=== PATIENT | male | born 1945 | race Caucasian/White ===

== ENCOUNTER 2017-05-16 20:28 | Inpatient (IN) | payer MEDICARE, BC ==
[~2017-05-16] VITALS: Ht 175.3 cm; Wt 78.4 kg
[~2017-05-16 20:28] MED LIST: ALBU8I INH; ASPI81TA82 PO; HYDR-3533 PO; NEXI40CA PO; OMEG100010; PARO20; RAMI5CAP36 PO; ROSU40 PO
[2017-05-16 20:32] VITALS: BP 106/69; PULSE 75; RESP 22; TEMP 98.7; O2SAT 96
[2017-05-16 20:40] VITALS: O2SAT 97
[2017-05-16] MEDS ORDERED: SODIUM CHLOR 0.9% 1000 ML INJ 1,000 ML IV ONE (20:55)
--- NOTE | 2017-05-16 21:10 | PD ---
HPI Chief Complaint: Neuro Symptoms/ Deficits Time Seen by Provider: 20:55 Travel History International Travel<30 days: No Contact w/Intl Traveler<30days: No Traveled to known affect area: No History of Present Illness HPI The patient is a 72-year-old male that developed slurred speech yesterday and then a 1 away. Around 10:30 AM he developed slurred speech but did not go away. He has difficulty keeping his balance when he walks, he may fall to the right some but this has not been noticed by the family. He does not notice any focal neurologic change. A similar thing happened one year ago in [place] where he lives but this was attributed to low blood sugar. Shortly after the slurred speech began today, the gave him some sugar. His Accu-Chek is 100 here. He denies any headache or head trauma. PFSH Past Medical History Asthma: Yes High Cholesterol: Yes Diminished Hearing: No Renal Failure: Yes Social History Alcohol Use: Yes (OCCAS) Tobacco Use: No Substance Use: No Allergies-Medications (Allergen,Severity, Reaction): Coded Allergies: penicillin G (Unverified Allergy, Intermediate, RASH, 05/16/17) Reported Meds & Prescriptions Reported Meds & Active Scripts Active Lortab 5 mg/325 mg (Hydrocodone/Acetaminophen 5 mg/325 mg) 1 Tab 1 Tab PO Q6H PRN Reported Paxil 20 Mg Tab (Paroxetine Hcl) 20 Mg Tab 20 Mg .XX [place] 3 ([place]-3 Fatty Acids) 1,000 Mg Cap Ramipril 5 mg (Ramipril) 5 Mg Cap 1 Cap PO DAILY Nexium (Esomeprazole Magnesium) Esomeprazole Magnesium 40 mg Cap 40 Mg PO DAILY Aspir-81 (Aspirin) 81 Mg Tab 81 Mg PO DAILY Crestor (Rosuvastatin Calcium) 40 Mg Tab 40 Mg PO DAILY Ventolin Hfa (Albuterol Sulfate) 8 Gm Aero 1 Puff INH Q4H PRN * SHAKE WELL BEFORE USE * Review of Systems Except as stated in HPI: all other systems reviewed are Neg Physical Exam Narrative GENERAL: The patient is alert, oriented 3 in no apparent distress. He does have a very slight slurred speech. Respirations are 22 but the rest the vital signs are normal. SKIN: Focused skin assessment warm/dry. HEAD: Atraumatic. Normocephalic. EYES: Pupils equal and round. No scleral icterus. No injection or drainage. ENT: No nasal bleeding or discharge. Mucous membranes pink and moist. NECK: Trachea midline. No JVD. No neck vein distention is present. No carotid bruits are heard. CARDIOVASCULAR: Regular rate and rhythm. No murmur appreciated. RESPIRATORY: No accessory muscle use. Clear to auscultation. Breath sounds equal bilaterally. GASTROINTESTINAL: Abdomen soft, non-tender, nondistended. Hepatic and splenic margins not palpable. MUSCULOSKELETAL: No obvious deformities. No clubbing. No cyanosis. No edema. NEUROLOGICAL: Awake and alert. No obvious cranial nerve deficits. Motor grossly within normal limits. Slightly slurred speech. When the patient stands on one leg, he has more difficulty standing on the right leg. There is questionable right sided weakness. Hand typesetting machine tender are equal. PSYCHIATRIC: Appropriate mood and affect; insight and judgment normal. Data Data Last Documented VS Vital Signs Date Time Temp Pulse Resp B/P (MAP) Pulse Ox O2 Delivery O2 Flow Rate FiO2 05/16/17 22:55 97.8 66 16 100/57 (71) 96 Room Air Orders Orders Nursing Bedside Swallow Assess .ONCE (05/16/17 20:55) Activity Bed Rest (05/16/17 20:55) Prothrombin Time / Inr (Pt) (05/16/17 20:55) Act Partial Throm Time (Ptt) (05/16/17 20:55) Complete Blood Count With Diff (05/16/17 20:55) Creatine Kinase (Cpk) (05/16/17 20:55) Troponin I (05/16/17 20:55) Ua Includes Microscopic (05/16/17 20:55) Ct Brain W/O Iv Contrast(Rout) (05/16/17 ) Electrocardiogram (05/16/17 ) Sodium Chlor 0.9% 1000 Ml Inj (Ns 1000 M (05/16/17 20:55) Blood Glucose (05/16/17 20:55) Ecg Monitoring (05/16/17 20:55) Iv Access Insert/Monitor (05/16/17 20:55) Oximetry (05/16/17 20:55) Oxygen Administration (05/16/17 20:55) Resp Oxygen Gamal C Titrat 1-4 L (05/16/17 20:55) Admit To Inpatient (05/16/17 ) Code Status (05/16/17 23:03) Vital Signs (Adult) Q4H (05/16/17 23:03) Nih Stroke Scale - Nihss .On admission and discharge (05/16/17 23:03) Neuro Checks Q4H (05/16/17 23:03) Ot Request For Service (05/16/17 23:03) Consult Pt Eval & Treat (05/16/17 23:03) Speech Therapy Consult-Eval/Tx (05/16/17 23:03) Case Management Consult (05/16/17 ) Activity Bed Rest (05/16/17 23:03) Nursing Bedside Swallow Assess .ONCE (05/16/17 23:03) Scd Bilateral/Knee High ZONIA.QSHIFT (05/16/17 23:03) Diet Npo (05/17/17 Breakfast) Hemoglobin (Hgb) A1c (05/17/17 06:00) Lipid Profile (05/17/17 06:00) Mra Brain W/O Contrast (Cow) (05/16/17 ) Mri Brain W/O Contrast (05/16/17 ) Echo 2d Comp With Doppler (05/16/17 ) Resp Oxygen Gamal C Titrat 1-4 L (05/16/17 ) ^ Hold Medication (05/16/17 23:03) Consult Neurology (05/16/17 ) Sodium Chloride 0.9% Flush (Ns Flush) (05/17/17 09:00) Sodium Chloride 0.9% Flush (Ns Flush) (05/16/17 23:15) Sodium Chlor 0.9% 1000 Ml Inj (Ns 1000 M (05/16/17 23:03) Enalaprilat Inj (Vasotec Inj) (05/16/17 23:15) Aspirin Chew (Aspirin Chew) (05/17/17 09:00) Pravastatin (Pravachol) (05/17/17 21:00) Bedside Glucose ZONIA.CSUGAR (05/16/17 23:03) ^ Discontinue Insulin Orders (05/16/17 23:03) Insulin Aspart Supplemtl Scale (Novolog (05/17/17 08:00) Dextrose 50% In [place] (Vial) Inj (D50w (Vi (05/16/17 23:15) Glucagon Inj (Glucagon Inj) (05/16/17 23:15) Level Vial Inside Grinder / Telemetry ZONIA.Q8H (05/16/17 23:03) Consult Stroke Navigator (05/16/17 ) Scd Bilateral/Knee High ZONIA.BID (05/16/17 23:03) Abel Bilateral/Knee High ZONIA.QSHIFT (05/16/17 23:05) Inpatient Certification (05/16/17 ) Activity Oob With Assistance (05/16/17 23:03) Sodium Chloride 0.9% Flush (Ns Flush) (05/16/17 23:15) Sodium Chloride 0.9% Flush (Ns Flush) (05/17/17 09:00) Ondansetron Inj (Zofran Inj) (05/16/17 23:15) Comprehensive Metabolic Panel (05/17/17 06:00) Complete Blood Count With Diff (05/17/17 06:00) Acetaminophen (Tylenol) (05/16/17 23:15) Acetamin-Hydrocod 325-5 Mg ([place] 5-325 (05/16/17 23:15) Morphine Inj (Morphine Inj) (05/16/17 23:15) Docusate Sodium-Senna (Maggy-Colace) (05/17/17 09:00) Magnesium Hydroxide Liq (Milk Of Magnesi (05/16/17 23:15) Sennosides (Senokot) (05/16/17 23:15) Bisacodyl Supp (Dulcolax Supp) (05/16/17 23:15) Lactulose Liq (Lactulose Liq) (05/16/17 23:15) (Hub Use Only)Inp Phy Cons/Ref (05/16/17 ) Comprehensive Metabolic Panel (05/16/17 23:12) Labs Laboratory Tests Test 05/16/17 20:45 White Blood Count 6.1 TH/MM3 Red Blood Count 3.93 MIL/MM3 Hemoglobin 12.0 GM/DL Hematocrit 36.2 % Mean Corpuscular Volume 92.0 FL Mean Corpuscular Hemoglobin 30.4 PG Mean Corpuscular Hemoglobin Concent 33.1 % Red Cell Distribution Width 13.0 % Platelet Count 167 TH/MM3 Mean Platelet Volume 9.8 FL Neutrophils (%) (Auto) 51.1 % Lymphocytes (%) (Auto) 35.8 % Monocytes (%) (Auto) 8.6 % Eosinophils (%) (Auto) 2.8 % Basophils (%) (Auto) 1.7 % Neutrophils # (Auto) 3.1 TH/MM3 Lymphocytes # (Auto) 2.2 TH/MM3 Monocytes # (Auto) 0.5 TH/MM3 Eosinophils # (Auto) 0.2 TH/MM3 Basophils # (Auto) 0.1 TH/MM3 CBC Comment DIFF FINAL Differential Comment Prothrombin Time 11.4 SEC Prothromb Time International Ratio 1.1 RATIO Activated Partial Thromboplast Time 28.0 SEC Total Creatine Kinase 115 U/L Troponin I LESS THAN 0.02 NG/ML MDM Medical Decision Making Medical Screen Exam Complete: Yes Emergency Medical Condition: Yes Medical Record Reviewed: Yes Interpretation(s) The CT brain shows no acute findings. EKG shows sinus rhythm with a rate of [address] elevation or depression. The CBC shows a hemoglobin of 12.0 and hematocrit of 36.2 but is otherwise normal. The coagulation profile is normal. The cardiac enzymes are normal. Differential Diagnosis TIA, ischemic CVA, intracranial bleed, brain tumor-unlikely, hypo-/hyperglycemia , electrolyte disorder Narrative Course It is now 11:16 PM and the patient is starting to speak more clearly. He still has some minimal slurred speech. He will be admitted to Dr. Strong, I discussed the patient with her. Procedures EKG Prior to Arrival: No Physician Communication Physician Communication I discussed the patient with Dr. Strong. Diagnosis Primary Impression: Ischemic cerebrovascular accident (CVA) Admitting Information Admitting Physician Requests: Admit Kiko Mcnally MD May 16, 2017 21:10
[2017-05-16 21:11] LABS: AUTOMATED NEUTROPHIL # 3.1 TH/MM3 (1.8-7.7); BASOPHIL # 0.1 TH/MM3 (0-0.2); BASOPHIL % 1.7 % (0.0-2.0); EOSINOPHIL # 0.2 TH/MM3 (0-0.4); EOSINOPHIL % 2.8 % (0.0-4.0); HEMATOCRIT 36.2 % (39.0-51.0); LYMPH % 35.8 % (9.0-44.0); LYMPHOCYTE # 2.2 TH/MM3 (1.0-4.8); MEAN CORPUSCULAR HEMOGLOBIN 30.4 PG (27.0-34.0); MEAN CORPUSCULAR HGB CONC 33.1 % (32.0-36.0); MEAN PLATELET VOLUME 9.8 FL (7.0-11.0); MONO % 8.6 % (0.0-8.0); MONOCYTE # 0.5 TH/MM3 (0-0.9); NEUT % 51.1 % (16.0-70.0); PLATELET COUNT 167 TH/MM3 (150-450); RED BLOOD COUNT 3.93 MIL/MM3 (4.50-5.90); WHITE BLOOD COUNT 6.1 TH/MM3 (4.0-11.0)
[2017-05-16 21:26] LABS: INTERNATIONAL NORMALIZED RATIO 1.1 RATIO; PROTHROMBIN TIME - PATIENT 11.4 SEC (9.8-11.6)
[2017-05-16 21:30] VITALS: BP 112/62; PULSE 70; RESP 16; O2SAT 97
[2017-05-16 21:30] LABS: TROPONIN I LESS THAN 0.02 NG/ML (0.02-0.05)
--- NOTE | 2017-05-16 21:50 | RADRPT ---
EXAM DATE/TIME: 05/16/2017 21:30 [facility] COMPARISON: CT BRAIN W/O CONTRAST, August 28, 2014, 14:02. INDICATIONS : Unsteady gait and slurred speach today RADIATION DOSE: 60.10 CTDIvol (mGy) MEDICAL HISTORY : Renal failure, chronic. SURGICAL HISTORY : None. ENCOUNTER: Initial ACUITY: 1 day PAIN SCALE: 0/10 LOCATION: cranial TECHNIQUE: Multiple contiguous axial images were obtained of the head. Using automated exposure control and adj ustment of the mA and/or kV according to patient size, radiation dose was kept as low as reasonably a chievable to obtain optimal diagnostic quality images. DICOM format image data is available electro nically for review and comparison. FINDINGS: CEREBRUM: The ventricles are normal for age. No evidence of midline shift, mass lesion, hemorrhage or acute in farction. No extra-axial fluid collections are seen. POSTERIOR FOSSA: The cerebellum and brainstem are intact. The 4th ventricle is midline. The cerebellopontine angle i s unremarkable. EXTRACRANIAL: The visualized portion of the orbits is intact. SKULL: The calvaria is intact. No evidence of skull fracture. CONCLUSION: No acute intracranial findings. Nain Reynolds MD on May 16, 2017 at 21:47 Board Certified Radiologist. This report was verified electronically.
[2017-05-16 22:55] VITALS: BP 100/57; PULSE 66; RESP 16; TEMP 97.8; O2SAT 96
[2017-05-16] MEDS ORDERED: MORPHINE SULFATE 2 MG/ML INJ IV PUSH PRN (23:15)
[2017-05-16] MEDS ORDERED: DEXTROSE 50% IN WATER 50 ML VIAL(D50) IV PUSH PRN (23:15)
[2017-05-16] MEDS ORDERED: ENALAPRILAT 1.25 MG/ML VIAL IV PUSH PRN (23:15)
[2017-05-16] MEDS ORDERED: SODIUM CHLORIDE 0.9% FLUSH 10 ML FLUSH IV FLUSH PRN ×2 (23:15)
[2017-05-16] MEDS ORDERED: LACTULOSE SYRUP 20 GM/30 ML CUP PO PRN (23:15)
[2017-05-16] MEDS ORDERED: BISACODYL 10 MG SUPP RECTAL PRN (23:15)
[2017-05-16] MEDS ORDERED: GLUCAGON 1 MG/ML VIAL OTHER PRN (23:15)
[2017-05-16] MEDS ORDERED: ONDANSETRON HCL 4 MG/2 ML VIAL IVP PRN (23:15)
[2017-05-16] MEDS ORDERED: MAGNESIUM HYDROXIDE SUSP 30 ML CUP PO PRN (23:15)
[2017-05-16] MEDS ORDERED: SENNOSIDES 8.6 MG TAB PO PRN (23:15)
[2017-05-16] MEDS ORDERED: ACETAMINOPHEN/HYDROcodone 325 MG/5 MG TAB PO PRN (23:15)
[2017-05-16 23:18] LABS: CHLORIDE 108 MEQ/L (98-107); SODIUM (NA) 141 MEQ/L (136-145)
[2017-05-16 23:25] LABS: ALBUMIN 3.8 GM/DL (3.4-5.0); BICARBONATE 24.4 MEQ/L (21.0-32.0); BLOOD UREA NITROGEN 15 MG/DL (7-18); CALCIUM 8.3 MG/DL (8.5-10.1); GLUCOSE,RANDOM 94 MG/DL (74-106)
[2017-05-16] MEDS: SODIUM CHLOR 0.9% 1000 ML INJ 1,000 ML IV SCH (23:26)
[2017-05-16 23:28] LABS: ALT (GPT) 38 U/L (12-78); AST (GOT) 44 U/L (15-37); GLOMERULAR FILTRATION RATE 59 ML/MIN (>89)
[2017-05-16 23:30] LABS: TOTAL BILIRUBIN ADULT 0.5 MG/DL (0.2-1.0); TOTAL PROTEIN 7.1 GM/DL (6.4-8.2)
[2017-05-16 23:31] LABS: ALKALINE PHOSPHATASE 77 U/L (45-117)
[2017-05-16 23:57] VITALS: BP 108/57; PULSE 68; RESP 16; O2SAT 98
[2017-05-17] VITALS (8 sets, daily range): BP systolic 126–168; BP diastolic 77–105; PULSE 64–88; RESP 16–20; TEMP 93.1–98.3; O2SAT 95–98
[2017-05-17] MEDS: INSULIN ASPART SUPPLEMENTAL SCALE SQ SCH ×4 (08:00→20:16)
[2017-05-17] MEDS: SODIUM CHLORIDE 0.9% FLUSH 10 ML FLUSH IV FLUSH SCH ×2 (09:00→20:17)
[2017-05-17] MEDS ORDERED: ASPIRIN 81 MG CHEW TAB PO SCH (09:00)
[2017-05-17] MEDS ORDERED: SODIUM CHLORIDE 0.9% FLUSH 10 ML FLUSH IV FLUSH SCH (09:00)
[2017-05-17 09:07] LABS: AUTOMATED NEUTROPHIL # 3.2 TH/MM3 (1.8-7.7); BASOPHIL % 0.3 % (0.0-2.0); EOSINOPHIL # 0.1 TH/MM3 (0-0.4); EOSINOPHIL % 2.2 % (0.0-4.0); HEMATOCRIT 33.1 % (39.0-51.0); HEMOGLOBIN 10.9 GM/DL (13.0-17.0); LYMPH % 25.7 % (9.0-44.0); LYMPHOCYTE # 1.2 TH/MM3 (1.0-4.8); MEAN CELL VOLUME 93.3 FL (80.0-100.0); MEAN CORPUSCULAR HEMOGLOBIN 30.7 PG (27.0-34.0); MEAN PLATELET VOLUME 8.6 FL (7.0-11.0); MONO % 7.1 % (0.0-8.0); MONOCYTE # 0.3 TH/MM3 (0-0.9); NEUT % 64.7 % (16.0-70.0); PLATELET COUNT 129 TH/MM3 (150-450); RED BLOOD COUNT 3.55 MIL/MM3 (4.50-5.90); RED CELL DISTRIBUTION WIDTH 13.2 % (11.6-17.2); WHITE BLOOD COUNT 4.8 TH/MM3 (4.0-11.0)
--- NOTE | 2017-05-17 09:44 | HHI.HP ---
[facility] Service [place] [facility] Primary Care Physician Non-Staff Admission Diagnosis Ischemic CVA Diagnoses: (1) TIA (transient ischemic attack) Chief Complaint: Slurred speech and balance difficulty Travel History International Travel<30 Days: No Contact w/Intl Traveler <30 Da: No Traveled to Known Affected Are: No History of Present Illness This is a 72-year-old male patient with a known medical history of hypertension , asthma, hyperlipidemia and kidney disease who presented to ED with complaints of slurred speech and balance difficulty. Patient states he was working outside all morning on the house, painting and doing yard work when he came inside around 11 AM and his reported increasing slurring of speech, confusion and repeating of his words. She also states that he continued to lose his balance, but never fell. He denies any loss of consciousness. is at bedside and states that this is happening to him on the past roughly one year ago up in [place] which was attributed to hypoglycemia at this time. She may be thought that the symptoms were related to keep him a diabetic sugar pill. Toes did not improve and therefore she brought him into the ER. Upon admission his blood sugar was 100. Symptoms have improved, patient is alert and awake and oriented. He does admit to chronic restless leg syndrome and fidgeting of hands. Patient has seen his PCP and was placed on Ropinirole. He has not been diagnosed with Parkinson's disease but states that he was told that this may be early signs of the disease. Denies any recent illness including fever, chills, cough, shortness of breath, abdominal pain, nausea, vomiting, diarrhea or dysuria. It should be noted that patient fell off his roof roughly 3 years ago and since then has having complaints of intermittent migraines and restlessness in his upper and lower extremities. Review of Systems Constitutional: DENIES: Fever, Chills Eyes: DENIES: Blurred vision, Diplopia Respiratory: DENIES: Cough, Sputum production, Shortness of breath Cardiovascular: DENIES: Chest pain, Syncope Gastrointestinal: DENIES: Abdominal pain, Bloody stools, Constipation, Diarrhea , Nausea, Vomiting Neurologic: COMPLAINS OF: Speech Problems, Tremor, Poor Balance Psychiatric: COMPLAINS OF: Confusion Except as stated in HPI: all other systems reviewed are Neg Past Family Social History Past Medical History Migraine headaches Asthma Hyperlipidemia Hypertension Renal failure Past Surgical History Denies any surgical history. Reported Medications Active Lortab 5 mg/325 mg (Hydrocodone/Acetaminophen 5 mg/325 mg) 1 Tab 1 Tab PO Q6H PRN Reported Paxil 20 Mg Tab (Paroxetine Hcl) 20 Mg Tab 20 Mg .XX [place] 3 ([place]-3 Fatty Acids) 1,000 Mg Cap Ramipril 5 mg (Ramipril) 5 Mg Cap 1 Cap PO DAILY Nexium (Esomeprazole Magnesium) Esomeprazole Magnesium 40 mg Cap 40 Mg PO DAILY Aspir-81 (Aspirin) 81 Mg Tab 81 Mg PO DAILY Crestor (Rosuvastatin Calcium) 40 Mg Tab 40 Mg PO DAILY Ventolin Hfa (Albuterol Sulfate) 8 Gm Aero 1 Puff INH Q4H PRN * SHAKE WELL BEFORE USE * Allergies: Coded Allergies: penicillin G (Unverified Allergy, Intermediate, RASH, 05/16/17) Active Ordered Medications Current Medications Medications (Trade) Dose Ordered Sig/Caprice Route Start Time Stop Time Status Last Admin Sodium Chloride 1,000 ml @ 70 mls/hr [id number] IV 05/16/17 23:03 05/16/17 23:26 (Vasotec Inj) 1.25 mg Q4H PRN IV PUSH 05/16/17 23:15 (Aspirin Chew) 81 mg DAILY PO 05/17/17 09:00 05/17/17 09:55 (Pravachol) 40 mg HS PO 05/17/17 21:00 (NovoLOG SUPPLEMENTAL SCALE) 1 ACHS SQ 05/17/17 08:00 (D50w (Vial) Inj) 50 ml UNSCH PRN IV PUSH 05/16/17 23:15 (Glucagon Inj) 1 mg UNSCH PRN OTHER 05/16/17 23:15 (NS Flush) 2 ml UNSCH PRN IV FLUSH 05/16/17 23:15 (NS Flush) 2 ml BID IV FLUSH 05/17/17 09:00 (Zofran Inj) 4 mg Q6H PRN IVP 05/16/17 23:15 (Tylenol) 650 mg Q6H PRN PO 05/16/17 23:15 ([place] 5-325 Mg) 1 tab Q4H PRN PO 05/16/17 23:15 (Morphine Inj) 2 mg Q3H PRN IV PUSH 05/16/17 23:15 (Maggy-Colace) 1 tab BID PO 05/17/17 09:00 05/17/17 09:55 (Milk Of Magnesia Liq) 30 ml Q12H PRN PO 05/16/17 23:15 (Senokot) 17.2 mg Q12H PRN PO 05/16/17 23:15 (Dulcolax Supp) 10 mg DAILY PRN RECTAL 05/16/17 23:15 (Lactulose Liq) 30 ml DAILY PRN PO 05/16/17 23:15 Family History Family medical history significant for diabetes. Social History Denies any tobacco use. Denies any alcohol. Denies any illicit drug use. Physical Exam Vital Signs Vital Signs Date Time Temp Pulse Resp B/P (MAP) Pulse Ox O2 Delivery O2 Flow Rate FiO2 05/17/17 08:00 98.1 88 20 168/93 (118) 98 05/17/17 06:34 93.1 64 16 126/77 (93) 97 05/17/17 01:30 67 05/17/17 01:24 98 21 05/17/17 00:58 05/16/17 23:57 68 16 108/57 (74) 98 Room Air 05/16/17 22:55 97.8 66 16 100/57 (71) 96 Room Air 05/16/17 21:30 70 16 112/62 (79) 97 Room Air 05/16/17 20:40 97 Room Air 05/16/17 20:40 97 Room Air 05/16/17 20:32 98.7 75 22 106/69 (81) 96 Physical Exam GENERAL: This is a well-nourished, well-developed patient, in no apparent distress. SKIN: No rashes, ecchymoses or lesions. Cool and dry. HEAD: Atraumatic. Normocephalic. No temporal or scalp tenderness. EYES: Pupils equal round and reactive. Extraocular motions intact. No scleral icterus. No injection or drainage. ENT: Nose without bleeding, purulent drainage or septal hematoma. Throat without erythema, tonsillar hypertrophy or exudate. Uvula midline. Airway patent. NECK: Trachea midline. No JVD or lymphadenopathy. Supple, nontender, no meningeal signs. CARDIOVASCULAR: Regular rate and rhythm without murmurs, gallops, or rubs. RESPIRATORY: Clear to auscultation. Breath sounds equal bilaterally. No wheezes , rales, or rhonchi. GASTROINTESTINAL: Abdomen soft, non-tender, nondistended. No hepato-splenomegaly , or palpable masses. No guarding. MUSCULOSKELETAL: Extremities without clubbing, cyanosis, or edema. No joint tenderness, effusion, or edema noted. No calf tenderness. Negative Homans sign bilaterally. NEUROLOGICAL: Awake and alert. Cranial nerves II through XII intact. Motor and sensory grossly within normal limits. Five out of 5 muscle strength in all muscle groups. Normal speech. Laboratory Laboratory Tests Test 05/16/17 20:45 05/17/17 08:40 White Blood Count 6.1 4.8 Red Blood Count 3.93 3.55 Hemoglobin 12.0 10.9 Hematocrit 36.2 33.1 Mean Corpuscular Volume 92.0 93.3 Mean Corpuscular Hemoglobin 30.4 30.7 Mean Corpuscular Hemoglobin Concent 33.1 33.0 Red Cell Distribution Width 13.0 13.2 Platelet Count 167 129 Mean Platelet Volume 9.8 8.6 Neutrophils (%) (Auto) 51.1 64.7 Lymphocytes (%) (Auto) 35.8 25.7 Monocytes (%) (Auto) 8.6 7.1 Eosinophils (%) (Auto) 2.8 2.2 Basophils (%) (Auto) 1.7 0.3 Neutrophils # (Auto) 3.1 3.2 Lymphocytes # (Auto) 2.2 1.2 Monocytes # (Auto) 0.5 0.3 Eosinophils # (Auto) 0.2 0.1 Basophils # (Auto) 0.1 0.0 CBC Comment DIFF FINAL DIFF FINAL Differential Comment Prothrombin Time 11.4 Prothromb Time International Ratio 1.1 Activated Partial Thromboplast Time 28.0 Blood Urea Nitrogen 15 Creatinine 1.20 Random Glucose 94 Total Protein 7.1 Albumin 3.8 Calcium Level 8.3 Alkaline Phosphatase 77 Aspartate Amino Transf (AST/SGOT) 44 Alanine Aminotransferase (ALT/SGPT) 38 Total Bilirubin 0.5 Sodium Level 141 Potassium Level 4.3 Chloride Level 108 Carbon Dioxide Level 24.4 Anion Gap 9 Estimat Glomerular Filtration Rate 59 Total Creatine Kinase 115 Troponin I LESS THAN 0.02 Result Diagram: 05/17/17 0840 05/16/17 2045 Imaging Last Impressions Head CT 05/16/17 0000 Signed Impressions: Service Date/Time: Tuesday, May 16, 2017 21:30 - CONCLUSION: No acute intracranial findings. Nain Reynolds MD Septic Shock Reassessment Septic shock perfusion: reassessment completed Caprini VTE Risk Assessment Caprini VTE Risk Assessment: Mod/High Risk (score >= 2) Caprini Risk Assessment Model Point Value = 1 Point Value = 2 Point Value = 3 Point Value = 5 Age 41-60 Minor surgery BMI > 25 kg/m2 Swollen legs Varicose veins or History of unexplained or recurrent spontaneous Oral contraceptives or hormone replacement Sepsis (< 1 month) Serious lung disease, including pneumonia (< 1 month) Abnormal pulmonary function Acute myocardial infarction Congestive heart failure (< 1 month) History of inflammatory bowel disease Medical patient at bed rest Age 61-74 Arthroscopic surgery Major open surgery (> 45 min) Laparoscopic surgery (> 45 min) Malignancy Confined to bed (> 72 hours) Immobilizing plaster cast Central venous access Age >= 75 History of VTE Family history of VTE Factor V Leiden Prothrombin [id number] Lupus anticoagulant Anticardiolipin antibodies Elevated serum homocysteine Heparin-induced thrombocytopenia Other congenital or acquired thrombophilia Stroke (< 1 month) Elective arthroplasty Hip, pelvis, or leg fracture Acute spinal cord injury (< 1 month) Prophylaxis Regimen Total Risk Factor Score Risk Level Prophylaxis Regimen 0-1 Low Early ambulation 2 Moderate Order ONE of the following: *Sequential Compression Device (SCD) *Heparin 5000 units SQ BID 3-4 Higher Order ONE of the following medications: *Heparin 5000 units SQ TID *Enoxaparin/Lovenox 40 mg SQ daily (WT < 150 kg, CrCl > 30 mL/min) *Enoxaparin/Lovenox 30 mg SQ daily (WT < 150 kg, CrCl > 10-29 mL/min) *Enoxaparin/Lovenox 30 mg SQ BID (WT < 150 kg, CrCl > 30 mL/min) AND/OR *Sequential Compression Device (SCD) 5 or more Highest Order ONE of the following medications: *Heparin 5000 units SQ TID (Preferred with Epidurals) *Enoxaparin/Lovenox 40 mg SQ daily (WT < 150 kg, CrCl > 30 mL/min) *Enoxaparin/Lovenox 30 mg SQ daily (WT < 150 kg, CrCl > 10-29 mL/min) *Enoxaparin/Lovenox 30 mg SQ BID (WT < 150 kg, CrCl > 30 mL/min) AND *Sequential Compression Device (SCD) Assessment and Plan Problem List: (1) TIA (transient ischemic attack) ICD Code: G45.9 - Transient cerebral ischemic attack, unspecified Plan: Presence of slurred speech and balance difficulties. Rule out CVA vs Parkinson' s Disease vs hypoglycemia. CT head reviewed showing no acute intracranial findings. MRI/MRA of the brain ordered and pending. Follow. Speech is much improved. Patient is alert and oriented. CBC and BMP reviewed, essentially unremarkable. Some anemia noted. Will trend CBC. Lipid panel ordered and pending. Will check hemoglobin A1c. Follow. Continued home statin. Placed on daily aspirin. Consult placed to neurology, appreciate further input and recommendations. Supplemental O2 as needed. Echocardiogram ordered, pending. Follow. Continue cardiac telemetry, monitor for any arrhythmias. PT and OT ordered for evaluation treatment, appreciate recommendations. Patient passed bedside swallow eval. Allow PO intake. Monitor for any dysphagia. Ensure hydration, continue IV fluid. Accu-Cheks before meals and at bedtime, sliding scale as needed, return if any hypoglycemia. Hemoglobin A1c pending. (2) Hypertension ICD Code: I10 - Essential (primary) hypertension Plan: Mildly elevated BP. Continue home medications. Monitor BP trends. DVT prophylaxis: SCDs. Physician Certification 2 Midnight Certification Type: Admission for Inpatient Services Order for Inpatient Services The services are ordered in accordance with Medicare regulations or non- Medicare payer requirements, as applicable. In the case of services not specified as inpatient-only, they are appropriately provided as inpatient services in accordance with the 2-midnight benchmark. Estimated LOS (days): 2 2 days is the estimated time the patient will need to remain in the hospital, assuming treatment plan goals are met and no additional complications. Post-Hospital Plan: Home Karely Perdomo May 17, 2017 09:44
[2017-05-17] MEDS: DOCUSATE SODIUM 50 MG/SENNA 8.6 MG TAB PO SCH ×2 (09:55→20:17)
[2017-05-17 10:03] LABS: ALBUMIN 3.4 GM/DL (3.4-5.0); BICARBONATE 27.4 MEQ/L (21.0-32.0); BLOOD UREA NITROGEN 17 MG/DL (7-18); CHLORIDE 107 MEQ/L (98-107); GLUCOSE,RANDOM 84 MG/DL (74-106); SODIUM (NA) 141 MEQ/L (136-145)
[2017-05-17 10:06] LABS: ALT (GPT) 34 U/L (12-78); GLOMERULAR FILTRATION RATE 66 ML/MIN (>89)
[2017-05-17 10:08] LABS: AST (GOT) 35 U/L (15-37); TOTAL BILIRUBIN ADULT 0.6 MG/DL (0.2-1.0); TOTAL PROTEIN 6.4 GM/DL (6.4-8.2)
[2017-05-17 10:09] LABS: ALKALINE PHOSPHATASE 71 U/L (45-117)
[2017-05-17] MEDS: SODIUM CHLOR 0.9% 1000 ML INJ 1,000 ML IV SCH (12:08)
[2017-05-17] MEDS: ACETAMINOPHEN 325 MG TAB PO PRN ×2 (12:40→20:19)
[2017-05-17 13:18] LABS: CHOLESTEROL 142 MG/DL (120-200); TRIGLYCERIDES 382 MG/DL (42-150)
[2017-05-17 13:20] LABS: CHOLESTEROL/ HDL RATIO 3.27 RATIO; HDL CHOLESTEROL 43.3 MG/DL (40.0-60.0); LDL CHOLESTEROL 22 MG/DL (0-99)
--- NOTE | 2017-05-17 15:46 | RADRPT ---
EXAM DATE/TIME: 05/17/2017 15:13 [facility] COMPARISON: CT BRAIN W/O CONTRAST, May 16, 2017, 21:30. INDICATIONS : Cephalgia. Slurred speech. MEDICAL HISTORY : Hypercholesterolemia. Diabetes mellitus type 2. Hypertension. Renal failure. SURGICAL HISTORY : None. ENCOUNTER: Subsequent ACUITY: 2 day PAIN SCORE: 3/10 LOCATION: cranial TECHNIQUE: Multiplanar, multisequence MRI of the brain was performed without contrast. FINDINGS: CEREBRUM: The ventricles are normal for age. No evidence of midline shift, mass lesion, hemorrhage or acute in farction. No extraaxial fluid collections are seen. The pituitary gland and suprasellar cistern are normal in configuration. WHITE MATTER: On the flair weighted images there is mild increased signal in the periventricular white matter. Ther e are several tiny scattered punctate areas of decreased signal noted in the white matter characteris tic of chronic small vessel ischemic change. POSTERIOR FOSSA: The cerebellum and brainstem are intact. The 4th ventricle is midline. The cerebellopontine angle is unremarkable. The cerebellar tonsils are normal in position. DIFFUSION IMAGING: No focal areas of restricted diffusion are seen. No evidence of acute infarction. EXTRACRANIAL: The visualized portions of the orbits and paranasal sinuses are unremarkable. CONCLUSION: 1. No acute hemorrhage, mass or infarction. 2. Mild atrophy and chronic small vessel ischemic change. Mathew Ngo MD on May 17, 2017 at 15:42 Board Certified Radiologist. This report was verified electronically.
--- NOTE | 2017-05-17 15:56 | RADRPT ---
EXAM DATE/TIME: 05/17/2017 15:13 [facility] COMPARISON: No previous studies available for comparison. INDICATIONS : Cephalgia. Slurred speech. MEDICAL HISTORY : Hypercholesterolemia. Diabetes mellitus type 2. Hypertension. Renal failure. SURGICAL HISTORY : None. ENCOUNTER: Initial ACUITY: 2 day PAIN SCORE: 3/10 LOCATION: cranial Please note a normal MRA of the brain does not entirely exclude the possibility of a small aneurysm, nor the possibility of distal intracranial vessel disease. TECHNIQUE: 3D time of flight MRA was performed. Source images, multiplanar STS MIP, and 3D volume MIP reconstru ctions were reviewed. FINDINGS: There is excellent visualization of the major intracranial arteries out to the second-order branch ve ssels. There is no evidence for aneurysm, vessel truncation or stenosis, and no evidence for vascula r malformation. CONCLUSION: Unremarkable exam. Mathew Ngo MD on May 17, 2017 at 15:52 Board Certified Radiologist. This report was verified electronically.
[2017-05-17] MEDS ORDERED: LOSA50TA PO (16:01)
[2017-05-17] MEDS ORDERED: ROPI0.5T PO (16:03)
--- NOTE | 2017-05-17 16:08 | ECHRPT ---
Indication: CVA/TIA CONCLUSIONS Normal left ventricular size. Mild concentric left ventricular hypertrophy. The left ventricular systolic function is normal with an estimated ejection fraction in the range of 55-60%. The left atrial size is mildly dilated. The interatrial septum not well visualized. Moderate aortic dilatation at the level of the sinuses of Valsalva. [id number] mitral valve regurgitation. Aortic valve sclerosis is present. Mild aortic valve regurgitation. There is mild tricuspid valve regurgitation. The estimated pulmonary arterial pressure is 32.7 mmHg. Trivial pulmonary valve regurgitation. BP: 133 / 88 HR: 75 Rhythm: Sinus MEASUREMENTS (Male / Female) Normal Values Technical Quality:Fair 2D ECHO LV Diastolic Diameter PLAX 3.5 cm 4.2 - 5.9 / 3.9 - 5.3 cm LV Systolic Diameter PLAX 2.6 cm IVS Diastolic Thickness 1.3 cm 0.6 - 1.0 / 0.6 - 0.9 cm LVPW Diastolic Thickness 1.3 cm 0.6 - 1.0 / 0.6 - 0.9 cm LV Relative Wall Thickness 0.8 RV Internal Dim ED PLAX 2.6 cm LVOT Diameter 2.6 cm Aortic Root Diameter 4.3 cm LA Systolic Diameter LX 3.4 cm 3.0 - 4.0 / 2.7 - 3.8 cm M-MODE AV Cusp Separation MM 2.3 cm DOPPLER AV Peak Velocity 143.0 cm/s AV Peak Gradient 8.2 mmHg AV Mean Gradient 5.0 mmHg AV Velocity Time Integral 29.3 cm LVOT Peak Velocity 80.5 cm/s LVOT Peak Gradient 2.6 mmHg LVOT Velocity Time Integral 17.8 cm AV Area Cont Eq vti 3.2 cm AV Area Cont Eq pk 3.0 cm Mitral E Point Velocity 60.7 cm/s Mitral A Point Velocity 91.3 cm/s Mitral E to A Ratio 0.7 LV E' Lateral Velocity 11.6 cm/s Mitral E to LV E' Lateral Ratio 5.2 LV E' Septal Velocity 7.1 cm/s Mitral E to LV E' Septal Ratio 8.5 TR Peak Velocity 238.0 cm/s TR Peak Gradient 22.7 mmHg Right Atrial Pressure 10.0 mmHg Pulmonary Artery Systolic Pressu 32.7 mmHg Right Ventricular Systolic Press 32.7 mmHg PV Peak Velocity 60.2 cm/s PV Peak Gradient 1.4 mmHg FINDINGS LEFT VENTRICLE Normal left ventricular size. Mild concentric left ventricular hypertrophy. The left ventricular systolic function is normal with an estimated ejection fraction in the range of 55-60%. RIGHT VENTRICLE Normal right ventricular size and systolic function. LEFT ATRIUM The left atrial size is mildly dilated. RIGHT ATRIUM The right atrial size is normal. ATRIAL SEPTUM The interatrial septum not well visualized. AORTA Moderate aortic dilatation at the level of the sinuses of Valsalva. MITRAL VALVE [id number] mitral valve regurgitation. AORTIC VALVE Aortic valve sclerosis is present. Mild aortic valve regurgitation. TRICUSPID VALVE There is mild tricuspid valve regurgitation. The estimated pulmonary arterial pressure is 32.7 mmHg. PULMONARY VALVE Trivial pulmonary valve regurgitation. VESSELS The inferior vena cava is normal in size. PERICARDIUM No pericardial effusion. Amilcar Paul MD (Electronically Signed) Final Date:17 May 2017 16:07
[2017-05-17] MEDS ORDERED: ASPI1TAB57 PO (16:35)
[2017-05-17] MEDS ORDERED: NEXI40CA PO (16:36)
[2017-05-17] MEDS ORDERED: PARO20TA2 PO (16:38)
[2017-05-17] MEDS ORDERED: HYDR-3516 (16:38)
[2017-05-17] MEDS ORDERED: ROSU1TAB10 PO (16:39)
--- NOTE | 2017-05-17 16:49 | EKG ---
Date Performed: 05/16/2017 Time Performed: 20:59:54 PTAGE: 72 years EKG: Sinus rhythm BASELINE ARTIFACT POSSIBLE LEFT ATRIAL ENLARGEMENT NONSPECIFIC T-WAVE ABNORMALITY ABNORMAL ECG NO PREVIOUS TRACING DOCTOR: Amilcar Paul Interpretating Date/Time 05/17/2017 16:48:17
[2017-05-17] MEDS ORDERED: NON-FORMULARY DRUG (Rosuvastatin 40 MG) PO SCH (17:00)
[2017-05-17] MEDS: LOSARTAN 50 MG TAB PO SCH (17:33)
[2017-05-17] MEDS ORDERED: PRAVASTATIN SOD 40 MG TAB PO SCH (21:00)
[2017-05-18] VITALS: BP 169/89; PULSE 67; RESP 20; TEMP 96.4; O2SAT 95
[2017-05-18] MEDS: SODIUM CHLOR 0.9% 1000 ML INJ 1,000 ML IV SCH (05:00)
[2017-05-18 05:02] VITALS: BP 145/75; PULSE 61; RESP 16; TEMP 97; O2SAT 96
[2017-05-18 07:48] LABS: BILIRUBIN, URINE NEG (NEG); BLOOD, URINE NEG (NEG); GLUCOSE,URINE NEG (NEG); KETONE, URINE NEG (NEG); NITRITE,URINE NEG (NEG); PH, URINE 5.5 (5.0-8.5); URINE LEUKOCYTE ESTERASE NEG (NEG)
[2017-05-18 08:00] VITALS: BP 163/99; PULSE 70; RESP 18; TEMP 97.1; O2SAT 98
[2017-05-18] MEDS: INSULIN ASPART SUPPLEMENTAL SCALE SQ SCH (08:00)
[2017-05-18 08:01] LABS: URINE COLOR YELLOW (YELLW/STRAW)
[2017-05-18 08:02] LABS: RBC, URINE 0-3 /hpf (0-3)
--- NOTE | 2017-05-18 08:27 | MB ---
cc: UDAY REMY MD DATE OF CONSULTATION: 05/17/2017 REASON FOR CONSULTATION: "CVA." HISTORY OF PRESENT ILLNESS: Mr. Velez is a 72-year-old male with past medical history of hypertension, asthma, hyperlipidemia, kidney disease presented to the [facility] emergency room with complaints of slurred speech and balance difficulty. The patient is accompanied by his who was at the bedside. He states he was working outside all morning on the house. His noted that he had increasing slurred speech, confusion and repeating his words. He also stated that he continued to lose his balance but never fell. Denies loss of consciousness, headache, double vision, weakness of extremities or convulsion. He had a similar episode that was attributed to hypoglycemia when he was in [place]. The patient and his are here in [place] for only three months during the winter time. They do not have a primary care physician or a neurologist. He used to follow up with neurology for his restless leg syndrome and his abnormal movements. No records are available. He was started on Ropinirole recently. He was told that he may have early signs or Parkinson' s disease. The patient has had history of slurred speech, occasional stuttering , rigidity of the upper extremities and restless leg movements, sleep disorder for a long time, as per . REVIEW OF SYSTEMS A 12-point review of systems is negative except for what is stated in the HPI. PAST MEDICAL HISTORY 1. Migraine headache. 2. Asthma. 3. Hyperlipidemia. 4. Hypertension. 5. Renal failure. 6. Restless leg syndrome. 7. Difficulty walking. PAST SURGICAL HISTORY: N/A. MEDICATIONS 1. Paxil. 2. Hazard III. 3. Ramipril. 4. Nexium. 5. Aspirin. 6. Crestor. 7. Ventolin. 8. Ropinirole 0.25 milligrams. ALLERGIES PENICILLIN G. FAMILY HISTORY Noncontributory. SOCIAL HISTORY Denies alcohol, tobacco or illicit drug abuse. PHYSICAL EXAMINATION General: Awake, alert, oriented, poor historian, stuttering, no slurring of speech, fidgety during the encounter. HEENT: Atraumatic, normocephalic. Intact hearing, intact vision. Neck: Supple. No signs of meningeal irritation. Cardiovascular: Regular rate and rhythm. Respiratory: Clear to auscultation. No wheezes. Gastrointestinal: Soft abdomen, nontender. Musculoskeletal: No clubbing, no cyanosis, no edema. Neurological: Awake, alert, oriented to time, person and place. Avoids eye contact. Stuttering of speech, rigidity of upper extremities, akathisia of the lower extremities. [id number] is intact. Fine action tremor bilateral, no cogwheel rigidity is present, 5/5 bilateral symmetrical upper and lower extremity, reflexes 2+ bilateral symmetrical. Plantars are bilaterally downgoing. Stance is mildly stooped. Gait is well balanced, no ataxia. Psychiologic: Avoids eye contact, masked face. No hallucinations. LABORATORY DATA - White blood cells 4.8, hemoglobin 10.9, platelet 129, LFT normal. DIAGNOSTIC IMAGING - Head CT scan without contrast revealed no acute intracranial findings. - Brain MRI without contrast revealed no acute hemorrhage, mass, or infarction, mild atrophy and chronic small vessel ischemic changes. - Head MRA was reported as unremarkable. DIAGNOSTIC IMPRESSION 1. TIA. 2. Akathisia. 3. Dyskinesia. 4. Hypertension. 5. Hyperlipidemia. PLAN - The neurological examination is nonfocal and these abnormal movements are chronic with stuttering of the speech. I saw the patient with the physical therapist. He is well balanced. At baseline he walks unaided. He does his activities of daily living by himself. - Neurologic investigation did not reveal any acute intracranial pathology. - Continue Ropinirole. - Follow up with neurology as outpatient for assessment of his cognitive function and movement disorder. - Aspirin 81 milligrams daily. - No need for further neurologic workup at this time. Please call for questions. Thank you for the opportunity to participate in the care of your patient. MD KANDICE Nicolas/VALERIO /10:06 PM /7:58 AM VERNON
[2017-05-18] MEDS: DOCUSATE SODIUM 50 MG/SENNA 8.6 MG TAB PO SCH (08:35)
[2017-05-18] MEDS: LOSARTAN 50 MG TAB PO SCH (08:35)
[2017-05-18] MEDS: SODIUM CHLORIDE 0.9% FLUSH 10 ML FLUSH IV FLUSH SCH (08:37)
[2017-05-18] MEDS ORDERED: PARoxetine HCL 20 MG TAB PO SCH (09:00)
[2017-05-18] MEDS ORDERED: ASPIRIN EC 81 MG TABEC PO SCH (09:00)
[2017-05-18] MEDS ORDERED: PANTOPRAZOLE SOD 40 MG DELAYED RELEASE TAB PO SCH (09:00)
--- NOTE | 2017-05-18 09:07 | HHI.FF ---
Face to Face Verification Diagnosis: (1) TIA (transient ischemic attack) (2) Dyskinesia (3) Akathisia (4) Hypertension Physical Therapy Order: Evaluate and Treat, Improve ambulation Occupational Therapy Order: Evaluate and Treat, Gross motor coordination, Fine motor coordination Speech Therapy Order: To Improve: Speech and communication skills, Cognitive skills I have seen patient Ankit Velez on 05/18/17. My clinical findings support the need for the requested home health care services because: Ltd mobility - disease progression Deconditioned w/ increased weakness I certify that my clinical findings support that this patient is homebound because: Impaired cognitive ability/safety Unsteady gait/balance Karely Perdomo May 18, 2017 09:07
[2017-05-18 09:19] LABS: HEMOGLOBIN A1C 5.6 % (4.3-6.0)
--- NOTE | 2017-05-18 09:26 | HHI.DS ---
Discharge Summary Admission Date May 16, 2017 at 23:21 Discharge Date: May 18, 2017 Admitting Diagnosis Ischemic CVA (1) TIA (transient ischemic attack) ICD Code: G45.9 - Transient cerebral ischemic attack, unspecified (2) Hypertension ICD Code: I10 - Essential (primary) hypertension Procedures none Brief History - From Admission This is a 72-year-old male patient with a known medical history of hypertension , asthma, hyperlipidemia and kidney disease who presented to ED with complaints of slurred speech and balance difficulty. Patient states he was working outside all morning on the house, painting and doing yard work when he came inside around 11 AM and his reported increasing slurring of speech, confusion and repeating of his words. She also states that he continued to lose his balance, but never fell. He denies any loss of consciousness. is at bedside and states that this is happening to him on the past roughly one year ago up in [place] which was attributed to hypoglycemia at this time. She may be thought that the symptoms were related to keep him a diabetic sugar pill. Toes did not improve and therefore she brought him into the ER. Upon admission his blood sugar was 100. Symptoms have improved, patient is alert and awake and oriented. He does admit to chronic restless leg syndrome and fidgeting of hands. Patient has seen his PCP and was placed on Ropinirole. He has not been diagnosed with Parkinson's disease but states that he was told that this may be early signs of the disease. Denies any recent illness including fever, chills, cough, shortness of breath, abdominal pain, nausea, vomiting, diarrhea or dysuria. It should be noted that patient fell off his roof roughly 3 years ago and since then has having complaints of intermittent migraines and restlessness in his upper and lower extremities. CBC/BMP: 05/17/17 0840 05/17/17 0840 Significant Findings Laboratory Tests Test 05/16/17 06:30 05/16/17 20:45 05/17/17 08:40 Red Blood Count 3.93 MIL/MM3 (4.50-5.90) 3.55 MIL/MM3 (4.50-5.90) Hemoglobin 12.0 GM/DL (13.0-17.0) 10.9 GM/DL (13.0-17.0) Hematocrit 36.2 % (39.0-51.0) 33.1 % (39.0-51.0) Monocytes (%) (Auto) 8.6 % (0.0-8.0) Calcium Level 8.3 MG/DL (8.5-10.1) 8.0 MG/DL (8.5-10.1) Aspartate Amino Transf (AST/SGOT) 44 U/L (15-37) Chloride Level 108 MEQ/L (98-107) Estimat Glomerular Filtration Rate 59 ML/MIN (>89) 66 ML/MIN (>89) Troponin I LESS THAN 0.02 NG/ML Platelet Count 129 TH/MM3 (150-450) Triglycerides Level 382 MG/DL (42-150) Imaging Last Impressions Head Magnetic Resonance Angiography 05/17/17 0000 Signed Impressions: Service Date/Time: Wednesday, May 17, 2017 15:13 - CONCLUSION: Unremarkable exam. Mathew Ngo MD Brain MRI 05/17/17 0000 Signed Impressions: Service Date/Time: Wednesday, May 17, 2017 15:13 - CONCLUSION: 1. No acute hemorrhage, mass or infarction. 2. Mild atrophy and chronic small vessel ischemic change. Mathew Ngo MD Head CT 05/16/17 0000 Signed Impressions: Service Date/Time: Tuesday, May 16, 2017 21:30 - CONCLUSION: No acute intracranial findings. Nain Reynolds MD PE at Discharge GENERAL: This is a well-nourished, well-developed patient, in no apparent distress. CARDIOVASCULAR: Regular rate and rhythm without murmurs, gallops, or rubs. RESPIRATORY: Clear to auscultation. Breath sounds equal bilaterally. No wheezes , rales, or rhonchi. GASTROINTESTINAL: Abdomen soft, non-tender, nondistended. Normal active bowel sounds MUSCULOSKELETAL: Extremities without clubbing, cyanosis, or edema. NEURO: Alert & Oriented x4 to person, place, time, situation. Moves all ext x4 Pt update on day of discharge patient seen and evaluated for discharge planning. Discharge plan and instructions discussed with patient and spouse. Imaging and neurological consult saying findings discussed with patient and spouse Hospital Course Patient is a 72-year-old gentleman with acute neurological complaints which were worrisome for ischemic injury pattern of the brain. 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 There is no evidence of acute stroke. He is seen by neurology and patient was recommended for outpatient follow-up Pt Condition on Discharge: Good Discharge Disposition: Disch w/ Home Health Serv Discharge Time: <= 30 minutes Discharge Instructions DIET: Follow Instructions for: Heart Healthy Diet Activities you can perform: Regular-No Restrictions Follow up Referrals: PCP Follow-up - 1 Week Continued Medications: Albuterol Sulfate 8 GM Inhaler (Ventolin Hfa) 8 Gm Aero 1 PUFF INH Q4H PRN for SHORTNESS OF BREATH, #1 BOX * SHAKE WELL BEFORE USE * Aspirin DR (Aspirin 81) 81 Mg Tabdr 81 MG PO DAILY, TAB [address] (Nexium) 40 Mg Capdr 40 MG PO DAILY, CAP 0 Refills Hydrocodone/Acetaminophen (Hydrocodone-Acetamin 5-325 mg) 5 Mg-325 Mg Tablet Hydrocodone/Acetaminophen 5 mg/325 mg (Lortab 5 mg/325 mg) 1 Tab 1 TAB PO Q6H PRN for PAIN, #12 TAB Losartan (Losartan) 50 Mg Tab 50 MG PO DAILY for Blood Pressure Management, #30 TAB 0 Refills [place]-3 Fatty Acids ([place] 3) 1,000 Mg Cap Paroxetine (Paroxetine) 20 Mg Tab 20 MG PO DAILY, #30 TAB 0 Refills Paroxetine Hcl (Paxil 20 Mg Tab) 20 Mg Tab 20 MG .XX, TAB Ropinirole (Ropinirole) 0.5 Mg Tab 0.5 MG PO ONCE, #1 TAB 0 Refills Rosuvastatin (Rosuvastatin) 40 Mg Tab 40 MG PO DAILY for Cholesterol Management, #30 TAB 0 Refills Anayeli Bond MD May 18, 2017 09:26
[2017-05-18] MEDS ORDERED: GETGO ROLLING W1 MI1 (09:50)
== END 2017-05-18 12:09 | disposition home or self-care (01) | DRG 69 ==
LOC: PHED 20:28 → PHEDA 23:21 → PH3A 05-17 00:42
PROVIDERS: ADMIT Hospitalist; ATTEND Hospitalist
DX: G45.9 Transient cerebral ischemic attack, unspecified (principal); I10 Essential (primary) hypertension; J45.909 Unspecified asthma, uncomplicated; E78.5 Hyperlipidemia, unspecified; G25.81 Restless legs syndrome; G24.9 Dystonia, unspecified
CPT/HCPCS: 70450; 70544; 70551; 80053; 80061; 81001; 82550; 82948; 83036; 84484; 85025; 85610; 85730; 93005; 93306; 96360; 96361; J7030